=== PATIENT | male | born 1945 | race Caucasian/White ===

== ENCOUNTER → 2017-04-06 | Outpatient (CLI) | payer MEDICARE ==
[2017-04-06 11:30] LABS: Blood Urea Nitrogen 18 mg/dL (9-20); Non-African American GFR(MDRD) >60 (>60 ml/min/1.73 sqM)
--- NOTE | 2017-04-06 12:56 | CT ---
EXAMINATION TYPE: CT ChestAbdPelvis w con DATE OF EXAM: 04/06/2017 12:23 PM COMPARISON: Previous study dated 09/22/2016. HISTORY: lymphadenopathy CT DLP: 775.8 mGycm Automated exposure control for dose reduction was used. TECHNIQUE: Helical acquisition through the abdomen and pelvis was obtained without oral contrast but following the intravenous administration of 100 mL of Omnipaque 300. The data was formatted in the a xial, coronal and sagittal projections. FINDINGS: The lungs are clear. There is no significant axillary adenopathy. There is shotty aortopulmonary window adenopathy. There is a 2.6 x 4.2 x 3.4 cm low attenuating lesion adjacent to the main pulmonary outflow tract. Me an Hounsfield density measures 9.6. This may represent a bronchogenic cyst or pericardial cyst. Lymph adenopathy cannot be excluded. This has not changed appreciably from the previous exam. There is no pleural or pericardial fluid. The heart is not enlarged. The aorta is normal in caliber. Within the abdomen, the gallbladder is been removed. The liver is normal in size but mildly fatty inf iltrated. The spleen is unremarkable. Both adrenal glands appear normal. Both kidneys demonstrate function and appear morphologically normal. The pancreas is unremarkable. There is a stable 8.6 mm retrocrural lymph node. A para-aortic lymph node previously measuring 1.2 cm measures 8.8 mm on today's examination. Other para-aortic lymph nodes measuring 9.9 and 10.2 mm on t he previous study measured 10.0 x 8.5 mm on today's exam. There is extensive mesenteric adenopathy. The largest is in the left lower abdomen and measures 1.6 c m. Previously this measured 1.3 cm. There is no iliac or inguinal adenopathy. The bladder is unremarkable. There is no significant diverticular change and there is no radiographic evidence of diverticulitis. The appendix is not visualized. Small bowel loops appear normal. There is no free fluid and no free air identified. There is a stable sclerotic focus within the superior acetabulum on the right. This is unchanged from previous and likely represents a bone island. There is degenerative disc disease and a vacuum phenom basil present at L5-S1. No bony destructive lesion is seen. IMPRESSION: 1. WAXING AND WANING ADENOPATHY IN THE MEDIASTINUM AND RETROCRURAL REGIONS WELL THE PARA-AORTIC REGION. LYMPH NODES IN THE MESENTERY HAVE ENLARGED FROM THE PREVIOUS EXAMINATION. 2. LOW ATTENUATING LESION ADJACENT TO THE MAIN PULMONARY OUTFLOW TRACT ON THE LEFT. DIFFERENTIAL DIAG NOSIS INCLUDES BRONCHOGENIC CYST, PERICARDIAL CYST AND ADENOPATHY. 3. FATTY INFILTRATION OF THE LIVER. 4. DEGENERATIVE CHANGES IN THE SPINE.
== END | disposition home or self-care (01) ==
LOC: RADCTMAIN 10:51
PROVIDERS: ATTEND Internal Medicine Hematology & Oncology
DX: R59.1 Generalized enlarged lymph nodes (principal); J98.4 Other disorders of lung; K76.0 Fatty (change of) liver, not elsewhere classified
CPT/HCPCS: 82565; 84520; 71260; 74177; 36415; Q9967